=== PATIENT | female | born 1995 | race Hispanic/Latino ===

== ENCOUNTER 2021-08-27 15:14 | Emergency (ER) | payer MEDICAID ==
[~2021-08-27] VITALS: Ht 147.3 cm; Wt 96.2 kg
[2021-08-27 15:19] VITALS: BP 154/93
[2021-08-27] MEDS ORDERED: IBUP-2070 PO (16:31)
== END 2021-08-27 16:38 | disposition home or self-care (01) ==
LOC: EDH 15:14
DX: J98.8 Other specified respiratory disorders (principal); Z20.822 Contact with and (suspected) exposure to COVID-19
CPT/HCPCS: 87635; 87804 ×2; 87880; 99283; C9803